=== PATIENT | female | born 1995 | race Caucasian/White ===

== ENCOUNTER 2019-02-10 19:40 | Emergency (ER) | payer OTHER ==
[~2019-02-10] VITALS: Ht 162.6 cm; Wt 95.3 kg
[2019-02-10] MEDS ORDERED: SPRINTEC1 EACH PO (19:48)
[2019-02-10] MEDS ORDERED: VYVANSE30 MG PO (19:48)
[2019-02-10] MEDS ORDERED: OXYBUTYNIN 5 MG5 M2 PO (19:48)
[2019-02-10] MEDS ORDERED: METFORMIN HCL500 M3 PO (19:54)
[2019-02-10] MEDS ORDERED: LEXAPRO5 MG PO (19:54)
[2019-02-10 20:31] LABS: URINE BILIRUBIN NEGATIVE (Negative); URINE BLOOD TRACE (Negative); URINE COLOR YELLOW; URINE GLUCOSE-RANDOM* NEGATIVE (Negative); URINE KETONES NEGATIVE (Negative); URINE NITRITE-REFLEX NEGATIVE (Negative); URINE PROTEIN (DIPSTICK) NEGATIVE (Negative); URINE UROBILINOGEN 0.2 E.U./dl (0.2-1.0)
[2019-02-10 20:34] LABS: URINE CLARITY SL HAZY; URINE LEUKOCYTES-REFLEX 3+ (Negative)
[2019-02-10 20:36] LABS: CASTS None Seen /LPF (None Seen); CRYSTALS None Seen /LPF (None Seen); SQUAMOUS 0-3 Few /LPF (0-3); URINE RBC 0-2 Rare /HPF (0-2); URINE WBC-REFLEX >25 Many /HPF (0-5)
[2019-02-10] MEDS ORDERED: KEFLEX500 M1 PO (21:16)
[2019-02-10 21:39] VITALS: BP 83/43
== END 2019-02-10 21:46 | disposition home or self-care (01) ==
LOC: ER 19:40
PROVIDERS: Physician Assistant
DX: N39.0 Urinary tract infection, site not specified (principal); Z91.040 Latex allergy status; Z88.2 Allergy status to sulfonamides; Z88.6 Allergy status to analgesic agent; Z79.899 Other long term (current) drug therapy